=== PATIENT | male | born 1940 | race African-American/Black ===

== ENCOUNTER 2021-11-23 15:37 | Inpatient (IN) | payer MEDICARE ==
[~2021-11-23] VITALS: Ht 165.1 cm; Wt 71.7 kg
[2021-11-23 17:22] LABS: BASOPHILS % 0.4 % (0.0-2.0); EOSINOPHILS % 0.1 % (0.0-5.0); LYMPHOCYTES % 9.1 % (20.0-50.0); MEAN CORPUSCULAR VOLUME 84.1 fL (80.0-94.0); MEAN PLATELET VOLUME 7.3 fl (7.4-10.4); MONOCYTES % 10.7 % (2.0-8.0); NEUTROPHILS % 79.7 % (40.0-76.0); PLATELET 437 x1000/uL (130-400); RED BLOOD CELL COUNT 1.56 mill/uL (4.7-6.1); RED CELL DISTRIBUTION WIDTH 18.9 % (11.6-14.6)
[2021-11-23 17:31] LABS: CHLORIDE 105 mEq/L (98-107); HEMATOCRIT. 13.1 % (42.0-52.0)
[2021-11-23] MEDS ORDERED: MAGNESIUM/ALUMINUM HYDROXIDE/SIMETHICONE 30ML UDC PO PRN (21:30)
[2021-11-23] MEDS ORDERED: DOCUSATE SODIUM 100MG CAPSULE PO PRN (21:30)
[2021-11-23] MEDS ORDERED: ZOLPIDEM TARTRATE 5MG TABLET PO PRN (21:30)
[2021-11-23] MEDS ORDERED: ACETAMINOPHEN 325MG TABLET PO PRN (21:30)
[2021-11-23 22:43] LABS: FOLIC ACID (FOLATE) SERUM 13.9 ng/mL (>5.38)
[2021-11-23 23:45] VITALS: BP 147/75
[2021-11-24] VITALS (13 sets, daily range): BP systolic 106–153; BP diastolic 50–70
[2021-11-24] MEDS ORDERED: HYDR-4135 MT (01:15)
[2021-11-24] MEDS ORDERED: AMI2 MT (01:15)
[2021-11-24] MEDS ORDERED: ATOR-2 MT (01:15)
[2021-11-24] MEDS ORDERED: APIX5TAB MT (01:15)
[2021-11-24] MEDS ORDERED: LOSA25TA26 MT (01:15)
[2021-11-24] MEDS ORDERED: AMLO10TA80 MT (01:15)
[2021-11-24 08:16] LABS: EOSINOPHILS % 0.6 % (0.0-5.0); HEMATOCRIT. 24.8 % (42.0-52.0); HEMOGLOBIN. 8.1 g/dL (14.0-18.0); LYMPHOCYTES % 19.2 % (20.0-50.0); MEAN CORPUSCULAR HEMOGLOBIN 26.9 pg (28.0-32.0); MEAN CORPUSCULAR VOLUME 82.3 fL (80.0-94.0); MEAN PLATELET VOLUME 7.8 fl (7.4-10.4); MONOCYTES % 11.7 % (2.0-8.0); NEUTROPHILS % 67.5 % (40.0-76.0); PLATELET 361 x1000/uL (130-400); RED BLOOD CELL COUNT 3.02 mill/uL (4.7-6.1); RED CELL DISTRIBUTION WIDTH 16.8 % (11.6-14.6)
[2021-11-24 09:37] LABS: CHLORIDE 106 mEq/L (98-107)
[2021-11-24] MEDS ORDERED: DIATR MEGLU/DIATRIZOATE SOLN 30ML PO SCH (13:15)
[2021-11-24] MEDS: IRON SUCROSE COMPLEX 100 MG/5 ML ML IV SCH (14:04)
[2021-11-25] VITALS: BP 134/81
[2021-11-25 04:00] VITALS: BP 140/78
[2021-11-25 07:16] LABS: EOSINOPHILS % 2.1 % (0.0-5.0); HEMATOCRIT. 24.4 % (42.0-52.0); HEMOGLOBIN. 7.9 g/dL (14.0-18.0); LYMPHOCYTES % 15.4 % (20.0-50.0); MEAN CORPUSCULAR HEMOGLOBIN 26.6 pg (28.0-32.0); MEAN CORPUSCULAR VOLUME 82.1 fL (80.0-94.0); MONOCYTES % 11.7 % (2.0-8.0); NEUTROPHILS % 69.8 % (40.0-76.0); PLATELET 345 x1000/uL (130-400); RED BLOOD CELL COUNT 2.97 mill/uL (4.7-6.1); RED CELL DISTRIBUTION WIDTH 16.6 % (11.6-14.6)
[2021-11-25 07:29] LABS: CHLORIDE 106 mEq/L (98-107)
[2021-11-25 08:00] VITALS: BP 135/51
[2021-11-25] MEDS: IRON SUCROSE COMPLEX 100 MG/5 ML ML IV SCH (11:15)
[2021-11-25 12:00] VITALS: BP 118/54
[2021-11-25 16:00] VITALS: BP 122/60
[2021-11-25] MEDS ORDERED: BISACODYL 5MG TABLET PO NR ×2 (18:00→22:00)
[2021-11-25] MEDS ORDERED: METOCLOPRAMIDE HCL 10MG/2ML VIAL IV NR ×2 (18:00→22:00)
[2021-11-25] MEDS ORDERED: SORBITOL 70% SOLN 30ML PO NR ×2 (18:30→22:30)
[2021-11-25 20:00] VITALS: BP 137/89
[2021-11-26] VITALS: BP 123/56
[2021-11-26 04:00] VITALS: BP 125/55
[2021-11-26 06:33] LABS: BASOPHILS % 1.1 % (0.0-2.0); EOSINOPHILS % 0.5 % (0.0-5.0); HEMATOCRIT. 28.2 % (42.0-52.0); HEMOGLOBIN. 9.3 g/dL (14.0-18.0); LYMPHOCYTES % 12.7 % (20.0-50.0); MEAN CORPUSCULAR HEMOGLOBIN 27.1 pg (28.0-32.0); MEAN CORPUSCULAR VOLUME 82.4 fL (80.0-94.0); MEAN PLATELET VOLUME 7.9 fl (7.4-10.4); MONOCYTES % 11.6 % (2.0-8.0); NEUTROPHILS % 74.1 % (40.0-76.0); PLATELET 417 x1000/uL (130-400); RED BLOOD CELL COUNT 3.42 mill/uL (4.7-6.1); RED CELL DISTRIBUTION WIDTH 17.1 % (11.6-14.6)
[2021-11-26 06:36] LABS: INR 1.1; PROTHROMBIN TIME 11.4 sec (9.6-11.0)
[2021-11-26 08:00] VITALS: BP 130/67
[2021-11-26 08:31] LABS: CHLORIDE 114 mEq/L (98-107)
[2021-11-26] MEDS: IRON SUCROSE COMPLEX 100 MG/5 ML ML IV SCH (08:43)
[2021-11-26 12:00] VITALS: BP 127/70
[2021-11-26] MEDS ORDERED: PROPOFOL 200MG/20ML VIAL IV ONE (14:20)
[2021-11-26] MEDS ORDERED: MIDAZOLAM HCL 2 MG/2 ML VIAL ONE (14:20)
[2021-11-26] MEDS ORDERED: LIDOCAINE HCL 2% JELLY 5ML ONE (14:21)
[2021-11-26] MEDS ORDERED: FENTANYL CITRATE/PF 50MCG/ML 2ML VIAL ONE (14:21)
[2021-11-26] MEDS ORDERED: ONDANSETRON HCL 4MG/2ML INJ ONE (14:21)
[2021-11-26] MEDS ORDERED: DEXAMETHASONE 4MG/ML 1ML VIAL ONE (14:21)
[2021-11-26 16:00] VITALS: BP 185/65
[2021-11-26 20:00] VITALS: BP 119/53
[2021-11-27] VITALS: BP 107/46
[2021-11-27 04:00] VITALS: BP 112/53
[2021-11-27 08:00] VITALS: BP 124/80
[2021-11-27] MEDS: IRON SUCROSE COMPLEX 100 MG/5 ML ML IV SCH (09:00)
[2021-11-27 12:00] VITALS: BP 115/49
[2021-11-27] MEDS ORDERED: DIATR MEGLU/DIATRIZOATE SOLN 120ML ONE (13:33)
[2021-11-27 16:00] VITALS: BP 141/66
[2021-11-27 20:00] VITALS: BP 114/52
[2021-11-28] VITALS: BP 138/79
[2021-11-28 04:00] VITALS: BP 124/58
[2021-11-28 06:20] LABS: CHLORIDE 109 mEq/L (98-107)
[2021-11-28 06:22] LABS: BASOPHILS % 0.4 % (0.0-2.0); HEMATOCRIT. 26.9 % (42.0-52.0); HEMOGLOBIN. 8.5 g/dL (14.0-18.0); MEAN CORPUSCULAR HEMOGLOBIN 27.3 pg (28.0-32.0); MEAN PLATELET VOLUME 8.1 fl (7.4-10.4); NEUTROPHILS % 74.6 % (40.0-76.0); PLATELET 375 x1000/uL (130-400); RED BLOOD CELL COUNT 3.13 mill/uL (4.7-6.1)
[2021-11-28 08:00] VITALS: BP 131/58
[2021-11-28] MEDS: IRON SUCROSE COMPLEX 100 MG/5 ML ML IV SCH (09:27)
[2021-11-28 12:00] VITALS: BP 134/64
[2021-11-28 15:07] VITALS: BP 134/64
== END 2021-11-28 16:33 | disposition home or self-care (01) | DRG 812 ==
LOC: ER 15:37 → ENRESERV 22:36 → ER 11-24 00:05 → 8WST 11-24 00:46
PROVIDERS: ADMIT Internal Medicine Pulmonary Disease; ATTEND Internal Medicine Pulmonary Disease
PROC: 30233N1 Transfusion of Nonautologous Red Blood Cells into Peripheral Vein, Percutaneous Approach (ICD-10-PCS; principal; 2021-11-23)
PROC: 0DJD8ZZ Inspection of Lower Intestinal Tract, Via Natural or Artificial Opening Endoscopic (ICD-10-PCS; 2021-11-26)
PROC: 0DB78ZX Excision of Stomach, Pylorus, Via Natural or Artificial Opening Endoscopic, Diagnostic (ICD-10-PCS; 2021-11-26)
DX: D50.9 Iron deficiency anemia, unspecified (principal); N17.9 Acute kidney failure, unspecified; I11.0 Hypertensive heart disease with heart failure; Z20.822 Contact with and (suspected) exposure to COVID-19; K57.30 Diverticulosis of large intestine without perforation or abscess without bleeding; K29.70 Gastritis, unspecified, without bleeding; I48.91 Unspecified atrial fibrillation; I25.10 Atherosclerotic heart disease of native coronary artery without angina pectoris; I50.9 Heart failure, unspecified; R53.83 Other fatigue; I25.2 Old myocardial infarction; Z95.1 Presence of aortocoronary bypass graft; Z79.01 Long term (current) use of anticoagulants; K80.20 Calculus of gallbladder without cholecystitis without obstruction
CPT/HCPCS: 36415; 71045; 74176; 76700; 80048; 80053; 82270; 82607; 82728; 82746; 83540; 83550; 83880; 84443; 84484; 85025; 86850; 86900; 86920; 87426; 88305; 88312; 88313; 93005; 99291; C9803; J1100; J2250; J2405; J2704; J2765; J3010; P9016; Q9963